=== PATIENT | female | born 1965 | race African-American/Black ===

== ENCOUNTER → 2017-02-09 | Outpatient (CLI) | payer OTHER ==
--- NOTE | ~2017-02-09 | US5 ---
[facility] A Service of [facility] RADIOLOGY TEXT RESULTS PATIENT: KAVON SCANLON LOCATION: [place] : 61 UNIT #: [id number] AGE: [address]: Lj Cullen MD SEX: F ORDER DR: [id number] [address] [address] [id number] O MR#: [id number] Acc #: [id number] NAME: KAVON SCANLON : 1965 SEX: F STUDY DATE/TIME: 02/09/2017 9:07 UNIT: CGUS ROOM: STUDY DESCRIPTION: US Abdominal Complete Attending Physician: Lj Cullen M.D. Referring Physician: Lj Cullen M.D. Ordering Physician: Lj Cullen M.D. Primary Care Physician: Lj Cullen M.D. MEDICAL IMAGING REPORT This report is preliminary unless electronic signature is present EXAM Abdominal ultrasound INDICATIONS Generalized and left upper quadrant abdominal pain for the past 20 years with intermittent nausea for the past 3 months. TECHNIQUE Alas-scale and Doppler imaging of the abdomen. COMPARISON STUDIES None. FINDINGS Visualized portions of pancreas are unremarkable. Common duct measures 3 mm. Unremarkable gallbladder. The spleen measures 7.8 cm. Left kidney measures 9 cm. Right kidney measures 8.9 cm. No hydronephrosis. Liver measures approximately 13.8 cm. Unremarkable gallbladder. IMPRESSION Negative abdominal ultrasound. Dictated by... Irineo Lima M.D. THIS IS AN ELECTRONICALLY VERIFIED REPORT Irineo Lima M.D. at 02/10/2017 8:05 AM EED/pcl TD: 02/09/2017 15:19 [facility] A Service [facility] RADIOLOGY TEXT RESULTS PATIENT: KAVON SCANLON LOCATION: [facility] : 61 UNIT #: [id number] AGE: [address]: Lj Cullen MD SEX: F ORDER DR: GANGA #: [id number] MEDICAL IMAGING REPORT Page 1 of 1 COPY
== END | disposition home or self-care (01) ==
LOC: CGUS 08:41
DX: R10.12 Left upper quadrant pain (principal)
CPT/HCPCS: 76700